=== PATIENT | male | born 1975 | race Caucasian/White ===

== ENCOUNTER → 2020-05-08 | Outpatient (CLI) | payer BC ==
--- NOTE | 2020-05-08 10:08 | Diagnostic Imaging Report ---
INDICATION: Right upper quadrant abdominal pain. TECHNIQUE: Gallbladder sonography was performed in the routine fashion. FINDINGS: The liver shows normal echogenicity with no focal lesions. The gallbladder is unremarkable with no stones or wall thickening. The common duct measures 3 mm. The portal vein is patent with hepatopetal flow. The aorta and IVC are not well visualized due to overlying gas. The right kidney measures 10.1 cm in length. There is no ascites. IMPRESSION: Unremarkable right upper quadrant ultrasound. Dictated by: Dictated on workstation # [id number]
== END ==
LOC: RAD 08:58
PROVIDERS: ATTEND Family Medicine
DX: R10.11 Right upper quadrant pain (principal)
CPT/HCPCS: 76705

== ENCOUNTER 2020-10-26 14:25 | Emergency (ER) | payer BC ==
[~2020-10-26] VITALS: Ht 173 cm; Wt 82.0 kg
--- NOTE | 2020-10-26 14:36 | ED GU-Male ---
General Stated Complaint: RLQ PAIN,DIFFICULTY URINATING History of Present Illness Date Seen by Provider: Oct 26, 2020 Time Seen by Provider: 14:35 Initial Comments To ER with some dysuria that began this morning that progressed to right lower quadrant abdominal pain. He had a similar episode a few months ago and had his gallbladder looked at but it was unremarkable. Timing/Duration: constant Severity/Quality: moderate Location: RLQ Radiation: suprapubic Activities at Onset: none Prior Genitourinary Problems: none Associated Symptoms: dysuria Allergies and Home Medications Allergies Coded Allergies: No Known Drug Allergies (Unverified , 10/26/20) Home Medications Hydrocodone/Acetaminophen 1 Each Tablet, 1 EACH PO Q4H PRN for PAIN-MODERATE (5- 7) Prescribed by: GRANT MARAVILLA on 10/26/20 1519 Ondansetron 8 Mg Tab.rapdis, 8 MG PO Q6H PRN for NAUSEA/VOMITING Prescribed by: GRANT MARAVILLA on 10/26/20 1519 Sulfamethoxazole/Trimethoprim 1 Each Tablet, 1 EACH PO BID Prescribed by: GRANT MARAVILLA on 10/26/20 1519 Patient Home Medication List Home Medication List Reviewed: Yes Review of Systems Review of Systems Constitutional: see HPI EENTM: see HPI Respiratory: no symptoms reported Cardiovascular: no symptoms reported Gastrointestinal: abdominal pain Genitourinary: see HPI, burning, dysuria Musculoskeletal: no symptoms reported Psychiatric/Neurological: No Symptoms Reported Endocrine: No Symptoms Reported Hematologic/Lymphatic: No Symptoms Reported Past Vinsaot-Wzwriq-Fvclmo Hx Patient Social History Recent Foreign Travel: No Contact w/Someone Who Travel: No Physical Exam Vital Signs Vital Signs - First Documented 10/26/20 15:17 Temp 35.3 Pulse 72 Resp 20 B/P (MAP) 178/109 (132) Pulse Ox 97 O2 Delivery Room Air Capillary Refill : Height, Weight, BMI Height: '" Weight: lbs. oz. kg; BMI Method: General Appearance: WD/WN, no apparent distress Respiratory: no respiratory distress, no accessory muscle use Gastrointestinal: normal bowel sounds, non tender, soft Extremities: normal range of motion, non-tender Neurologic/Psychiatric: alert, normal mood/affect, oriented x 3 Skin: normal color, warm/dry Progress/Results/Core Measures Suspected Sepsis SIRS Temperature: Pulse: Respiratory Rate: Laboratory Tests 10/26/20 14:42: White Blood Count 5.5 Blood Pressure / Mean: Laboratory Tests 10/26/20 14:42: Creatinine 1.06, Platelet Count 221, Total Bilirubin 0.4 Results/Orders Lab Results Laboratory Tests Test 10/26/20 14:42 10/26/20 14:50 Range/Units White Blood Count 5.5 4.3-11.0 10^3/uL Red Blood Count 4.95 4.30-5.52 10^6/uL Hemoglobin 14.4 13.3-17.7 g/dL Hematocrit 44 40-54 % Mean Corpuscular Volume 88 80-99 fL Mean Corpuscular Hemoglobin 29 25-34 pg Mean Corpuscular Hemoglobin Concent 33 32-36 g/dL Red Cell Distribution Width 12.5 10.0-14.5 % Platelet Count 221 130-400 10^3/uL Mean Platelet Volume 10.6 9.0-12.2 fL Immature Granulocyte % (Auto) 0 % Neutrophils (%) (Auto) 44 42-75 % Lymphocytes (%) (Auto) 47 H 12-44 % Monocytes (%) (Auto) 7 0-12 % Eosinophils (%) (Auto) 1 0-10 % Basophils (%) (Auto) 0 0-10 % Neutrophils # (Auto) 2.4 1.8-7.8 10^3/uL Lymphocytes # (Auto) 2.6 1.0-4.0 10^3/uL Monocytes # (Auto) 0.4 0.0-1.0 10^3/uL Eosinophils # (Auto) 0.1 0.0-0.3 10^3/uL Basophils # (Auto) 0.0 0.0-0.1 10^3/uL Immature Granulocyte # (Auto) 0.0 0.0-0.1 10^3/uL Sodium Level 144 135-145 MMOL/L Potassium Level 3.7 3.6-5.0 MMOL/L Chloride Level 105 98-107 MMOL/L Carbon Dioxide Level 27 21-32 MMOL/L Anion Gap 12 5-14 MMOL/L Blood Urea Nitrogen 16 7-18 MG/DL Creatinine 1.06 0.60-1.30 MG/DL Estimat Glomerular Filtration Rate > 60 BUN/Creatinine Ratio 15 Glucose Level 73 70-105 MG/DL Calcium Level 8.9 8.5-10.1 MG/DL Corrected Calcium 8.5-10.1 MG/DL Total Bilirubin 0.4 0.1-1.0 MG/DL Aspartate Amino Transf (AST/SGOT) 31 5-34 U/L Alanine Aminotransferase (ALT/SGPT) 42 0-55 U/L Alkaline Phosphatase 98 40-136 U/L Total Protein 8.4 H 6.4-8.2 GM/DL Albumin 4.6 H 3.2-4.5 GM/DL Urine Color YELLOW Urine Clarity CLEAR Urine pH 6.0 5-9 Urine Specific [place] >=1.030 1.016-1.022 Urine Protein TRACE H NEGATIVE Urine Glucose (UA) NEGATIVE NEGATIVE Urine Ketones NEGATIVE NEGATIVE Urine Nitrite NEGATIVE NEGATIVE Urine Bilirubin NEGATIVE NEGATIVE Urine Urobilinogen 1.0 < = 1.0 MG/DL Urine Leukocyte Esterase NEGATIVE NEGATIVE Urine RBC (Auto) 3+ H NEGATIVE Urine RBC 10-25 H /HPF Urine WBC RARE /HPF Urine Squamous Epithelial Cells RARE /HPF Urine Crystals NONE /LPF Urine Bacteria TRACE /HPF Urine Casts NONE /LPF Urine Mucus SMALL H /LPF Urine Culture Indicated NO My Orders Orders - GRANT MARAVILLA APRN Cbc With Automated Diff (10/26/20 14:33) Comprehensive Metabolic Panel (10/26/20 14:33) Ed Iv/Invasive Line Start (10/26/20 14:33) Ct Abd/Pelvis Wo(Kidney Stone) (10/26/20 14:33) Ns Iv 1000 Ml (Sodium Chloride 0.9%) (10/26/20 14:45) Ondansetron Injection (Zofran Injectio (10/26/20 14:45) Ketorolac Injection (Toradol Injection) (10/26/20 14:45) Ua Culture If Indicated (10/26/20 14:33) Fentanyl Injection (Sublimaze Injection (10/26/20 15:04) Medications Given in ED Current Medications Medications Dose Ordered Sig/Radha Route Start Time Stop Time Status Last Admin Dose Admin Ketorolac Tromethamine 15 mg ONCE ONCE IVP 10/26/20 14:45 10/26/20 14:46 DC 10/26/20 14:56 15 MG Ondansetron HCl 4 mg ONCE ONCE IVP 10/26/20 14:45 10/26/20 14:46 DC 10/26/20 14:56 4 MG Vital Signs/I&O 10/26/20 15:17 Temp 35.3 Pulse 72 Resp 20 B/P (MAP) 178/109 (132) Pulse Ox 97 O2 Delivery Room Air Capillary Refill : Departure Impression Primary Impression: Right ureteral stone Additional Impression: Abdominopelvic lymphadenopathy Disposition: HOME, SELF-CARE Condition: Stable Departure-Patient Inst. Decision time for Depature: 15:14 Referrals: BRENT JEFFERSON MD (PCP/Family) Primary Care Physician Patient Instructions: Kidney Stones in Adults Add. Discharge Instructions: 1. Return to ER for any fevers chills or intolerable pain. Take the pain medication and nausea medication as directed. Follow-up with Dr. Jefferson on Thursday. Emergency department focuses on treating and ruling out life- threatening diseases. Whenever possible, a diagnosis is given. However, most patients are given an impression based on their history, physical exam, and w orkup during your brief time in the ER. Information about probable diagnosis and other educational material has been provided. Please take the time to read and understand this information. It is very important that you follow up with a physician as discussed during the visit today. Failure to adhere to your follow-up instructions may lead to severe disability, injury, or so please make sure to keep your appointments or obtain one as requested. Scripts Sulfamethoxazole/Trimethoprim (Bactrim Ds Tablet) 1 Each Tablet 1 EACH PO BID, #14 TAB Prov: GRANT MARAVILLA APRN 10/26/20 Ondansetron (Ondansetron Odt) 8 Mg Tab.rapdis 8 MG PO Q6H PRN for NAUSEA/VOMITING, #10 TAB Prov: GRANT MARAVILLA APRN 10/26/20 Hydrocodone/Acetaminophen (Hydrocodone-Acetamin 5-325 mg) 1 Each Tablet 1 EACH PO Q4H PRN for PAIN-MODERATE (5-7), #14 TAB Prov: GRANT MARAVILLA APRN 10/26/20 Copy Copies To 1: BRENT JEFFERSON MD, PETER J APRN Oct 26, 2020 14:36
[2020-10-26] MEDS ORDERED: KETOROLAC 30 MG/ML VIAL IVP ONE (14:45)
[2020-10-26] MEDS ORDERED: NS IV 1000 ML 1,000 ML IV SCH (14:45)
[2020-10-26] MEDS ORDERED: ONDANSETRON 4 MG/2 ML (SDV) Z0FRAN IVP ONE (14:45)
[2020-10-26 14:49] LABS: BASOPHILS % (AUTO) 0 % (0-10); EOSINOPHILS # (AUTO) 0.1 10^3/uL (0.0-0.3); EOSINOPHILS % (AUTO) 1 % (0-10); HEMATOCRIT 44 % (40-54); HEMOGLOBIN 14.4 g/dL (13.3-17.7); LYMPHOCYTES # (AUTO) 2.6 10^3/uL (1.0-4.0); LYMPHOCYTES % (AUTO) 47 % (12-44); MEAN CORPUSCULAR HEMOGLOBIN 29 pg (25-34); MEAN CORPUSCULAR HGB CONC 33 g/dL (32-36); MEAN CORPUSCULAR VOLUME 88 fL (80-99); MEAN PLATELET VOLUME 10.6 fL (9.0-12.2); MONOCYTES # (AUTO) 0.4 10^3/uL (0.0-1.0); MONOCYTES % (AUTO) 7 % (0-12); NEUTROPHILS # (AUTO) 2.4 10^3/uL (1.8-7.8); NEUTROPHILS % (AUTO) 44 % (42-75); PLATELET COUNT 221 10^3/uL (130-400); WHITE BLOOD COUNT 5.5 10^3/uL (4.3-11.0)
[2020-10-26 14:59] LABS: ALBUMIN 4.6 GM/DL (3.2-4.5); CHLORIDE 105 MMOL/L (98-107); POTASSIUM 3.7 MMOL/L (3.6-5.0); SODIUM 144 MMOL/L (135-145)
[2020-10-26 15:00] LABS: BILIRUBIN,URINE NEGATIVE (NEGATIVE); CLARITY,URINE CLEAR; COLOR,URINE YELLOW; GLUCOSE, URINE (UA) NEGATIVE (NEGATIVE); KETONES,URINE NEGATIVE (NEGATIVE); LEUKOCYTE ESTERASE ,URINE NEGATIVE (NEGATIVE); NITRITE,URINE NEGATIVE (NEGATIVE); PROTEIN,URINE TRACE (NEGATIVE)
[2020-10-26 15:00] LABS: CALCIUM 8.9 MG/DL (8.5-10.1)
[2020-10-26 15:01] LABS: GLUCOSE 73 MG/DL (70-105)
[2020-10-26 15:02] LABS: TOTAL PROTEIN 8.4 GM/DL (6.4-8.2)
[2020-10-26 15:03] LABS: BILIRUBIN,TOTAL 0.4 MG/DL (0.1-1.0); CARBON DIOXIDE 27 MMOL/L (21-32)
[2020-10-26] MEDS ORDERED: fentaNYL INJECTION 100 MCG/2 ML AMP ONE ×2 (15:04→15:42)
[2020-10-26 15:05] LABS: ALKALINE PHOSPHATASE 98 U/L (40-136); CREATININE SERUM 1.06 MG/DL (0.60-1.30); GFR ESTIMATED > 60
[2020-10-26 15:06] LABS: BUN/CREATININE RATIO 15
[2020-10-26 15:08] LABS: ALANINE AMINOTRANSFERASE 42 U/L (0-55)
[2020-10-26 15:10] LABS: BACTERIA,URINE TRACE /HPF; SQUAMOUS EPITHELIAL CELL,UR RARE /HPF; WBC,URINE RARE /HPF
[2020-10-26] MEDS ORDERED: ACHD5005 PO (15:19)
[2020-10-26] MEDS ORDERED: SULF1TAB35 PO (15:19)
[2020-10-26] MEDS ORDERED: ONDA8TAB13 PO (15:19)
--- NOTE | 2020-10-26 15:27 | Diagnostic Imaging Report ---
PROCEDURE: CT urinary tract, rule out kidney stone. TECHNIQUE: Multiple contiguous axial images were obtained through the abdomen and pelvis without the use of intravenous contrast. Auto Exposure Controls were utilized during the CT exam to meet ALARA standards for radiation dose reduction. INDICATION: Right-sided abdominal pain CORRELATION STUDY: None. FINDINGS: LOWER THORAX: There are multifocal patchy nodular densities involving the bilateral lower lobes right greater than left. Largest on the right measuring up to 18 mm. On the left up to 15 mm. Heart size within normal limits. Small hiatal hernia. LIVER: Unremarkable. GALLBLADDER: Contracted but otherwise unremarkable. No significant bile ductal dilatation. SPLEEN: Unremarkable. Small splenule in the hilum inferiorly. PANCREAS: Unremarkable. ADRENAL GLANDS: Unremarkable. KIDNEYS: Approximately 8 mm stone at the right UVJ results in mild to moderate right-sided hydroureteronephrosis. Left kidney and collecting system unremarkable. ABDOMINAL AORTA: Unremarkable, nonaneurysmal. GASTROINTESTINAL TRACT: No obstruction or inflammation. Normal appendix. Slight haziness about the central mesentery with minimal mesenteric lymph nodes. URINARY BLADDER: Relatively decompressed not well evaluated. REPRODUCTIVE: Unremarkable. OSSEOUS STRUCTURES: No acute abnormality. OTHER: None. IMPRESSION: 1. 8 mm stone at the right UVJ results in mild right-sided obstructive uropathy. 2. Patchy bibasilar pulmonary infiltrates/nodules. While it could be inflammatory infectious or even embolic in etiology, possibility of underlying neoplasm is also in the differential. Correlation with patient's symptoms as well as consideration for followup CT imaging of the chest is recommended. Dictated by: Dictated on workstation # [id number]
[2020-10-26] MEDS ORDERED: HYDROcodone/APAP 5 MG/325 MG (LORTAB) TAB PO ONE (15:45)
[2020-10-26] MEDS ORDERED: fentaNYL INJECTION 100 MCG/2 ML AMP IVP ONE (15:45)
[2020-10-26 16:15] VITALS: BP 178/109
== END 2020-10-26 16:15 ==
LOC: EDUNIT# 14:25 → ER 14:27
DX: N13.2 Hydronephrosis with renal and ureteral calculous obstruction (principal); R59.1 Generalized enlarged lymph nodes
CPT/HCPCS: 36415; 74176; 80053; 81000; 85025

== ENCOUNTER → 2020-10-30 | Outpatient (CLI) | payer BC ==
[~2020-10-30] MED LIST: ACHD5005 PO; FINA1TAB16 PO; LISI10TA2 PO; ONDA8TAB13 PO; ROSU20TA32 PO; SULF1TAB35 PO; TMSL.4C PO
--- NOTE | 2020-10-30 14:44 | Diagnostic Imaging Report ---
INDICATION: Follow-up calculus. COMPARISON: CT dated 10/26/2020. FINDINGS: Two frontal supine radiographic views of the abdomen were obtained. Small bowel loops are nondistended. There is no large collection of free intraperitoneal air. 7 mm calculus projects over the right pelvis and is felt to correspond to distal ureteral calculus seen on previous CT. Distal ureteral versus intraluminal position within the bladder is indeterminate. No unexpected radiopaque foreign bodies are seen. Osseous structures show no acute abnormalities IMPRESSION: 1. Nonobstructed small bowel gas pattern. 2. Persistent collecting system calculus projecting over the right pelvis as above. Dictated by: Dictated on workstation # [id number]
== END ==
LOC: RAD 14:17
PROVIDERS: ATTEND Urology
DX: N20.1 Calculus of ureter (principal)
CPT/HCPCS: 74018

== ENCOUNTER 2020-10-31 07:08 | Day surgery (SDC) | payer BC ==
[~2020-10-31] VITALS: Ht 172.7 cm; Wt 81.8 kg
[2020-10-31] VITALS (8 sets, daily range): BP systolic 113–138; BP diastolic 76–102
[~2020-10-31 07:08] MED LIST changes: -FINA1TAB16 PO; -LISI10TA2 PO; -ROSU20TA32 PO; -TMSL.4C PO
--- NOTE | 2020-10-31 07:31 | Progress Note-Pre Operative ---
Pre-Operative Progress Note H&P Reviewed The H&P was reviewed, patient examined and no changes noted. Date Seen by Provider: Oct 31, 2020 Time Seen by Provider: 07:30 Date H&P Reviewed: Oct 31, 2020 Time H&P Reviewed: 07:30 Pre-Operative Diagnosis: RT DISTAL URETERAL STONE DALLIN OKEEFE MD Oct 31, 2020 07:31
--- NOTE | 2020-10-31 07:31 | Progress Note-Post Operative ---
Post-Operative Progess Note Surgeon (s)/Boat Puller (s) Surgeon DALLIN OKEEFE MD Boat Puller: NONE Pre-Operative Diagnosis RT DISTAL URETERAL STONE Post-Operative Diagnosis SAME Procedure & Operative Findings Date of Procedure 10/31/20 Procedure Performed/Findings RT URETEROSCOPY WITH STONE LITHOTRIPSY Anesthesia Type GENERAL Estimated Blood Loss Estimated blood loss (mL): NONE Specimens/Packing Specimens Removed NONE Packing: NONE DALLIN OKEEFE MD Oct 31, 2020 07:31
--- NOTE | 2020-10-31 07:33 | Discharge Inst-Urology ---
Discharge Inst-Urology Reconcile Patient Problems Problems Reviewed?: Yes Final Diagnosis RT DISTAL URETERAL STONE Patient Instructions/Follow Up Plan/Assessment/Instructions Please make appointment to been seen in office in 2 weeks. Increase oral fluids for 48 hours and then as needed. Diet and Activity as tolerated. If questions or concerns contact your physician Or seek help at emergency department. DALLIN OKEEFE MD Oct 31, 2020 07:33
[2020-10-31] MEDS: LACTATED RINGERS 1,000 ML IV PRN ×2 (07:43→09:50)
[2020-10-31] MEDS ORDERED: cefTRIAXone FOR IV USE 1,000 MG in WATER (STERILE) FOR INJECTION 10 ML IV ONE (07:45)
[2020-10-31] MEDS ORDERED: CATHETER FLUSH 10 ML SYR IV PRN (08:00)
--- NOTE | 2020-10-31 08:10 | Diagnostic Imaging Report ---
Indication: Preop for right-sided stone. Time of exam 800 AM Correlation is made with prior abdominal radiograph from one day earlier. 7 mm calculus projects in right para midline pelvis, similar to prior exam and likely in the distal right ureter. No other urinary tract calculi are detected. Bowel gas pattern is unremarkable. IMPRESSION: Right para midline pelvic calcification, likely representing a recently seen distal right ureteral calculus. This is similar position to examination one day earlier. Dictated by: Dictated on workstation # [id number]
[2020-10-31] MEDS ORDERED: LISI10TA2 PO (08:26)
[2020-10-31] MEDS ORDERED: ROSU20TA32 PO (08:26)
[2020-10-31] MEDS ORDERED: FINA1TAB16 PO (08:26)
[2020-10-31] MEDS ORDERED: fentaNYL INJECTION 100 MCG/2 ML AMP ONE (08:48)
[2020-10-31] MEDS ORDERED: proPOfol 200 MG/20 ML (DIPRIVAN) VIAL IV ONE (08:48)
[2020-10-31] MEDS ORDERED: MIDAZOLAM 2 MG/2 ML (VERSED) VIAL ONE (08:48)
[2020-10-31] MEDS ORDERED: LIDOCAINE PF 2% 5 ML (XYLOCAINE) VIAL ONE (08:48)
[2020-10-31] MEDS ORDERED: SEVOFLURANE (ULTANE) 15 ML INHAL SOLN ONE (08:49)
[2020-10-31] MEDS ORDERED: ONDANSETRON 4 MG/2 ML (SDV) Z0FRAN ONE (08:49)
[2020-10-31] MEDS ORDERED: ROCURONIUM 10 MG/ML 5 ML SYRINGE IV ONE (09:26)
[2020-10-31] MEDS ORDERED: GLYCOPYRROLATE 0.2 MG/ML (ROBINUL) 2 ML VIAL ONE ×2 (09:26→09:30)
[2020-10-31] MEDS ORDERED: KETOROLAC 30 MG/ML VIAL ONE (09:27)
[2020-10-31] MEDS ORDERED: FUROSEMIDE 40 MG/4 ML INJ (LASIX) ONE (09:27)
[2020-10-31] MEDS ORDERED: NEOSTIGMINE 3 MG/3 ML VIAL ONE (09:30)
[2020-10-31] MEDS ORDERED: ONDANSETRON 4 MG/2 ML (SDV) Z0FRAN IVP PRN (09:45)
[2020-10-31] MEDS ORDERED: HYDROmorphone 2 MG/ML VIAL (DILAUDID) IV ONE (09:45)
[2020-10-31] MEDS ORDERED: TMSL.4C PO (11:07)
--- NOTE | 2020-10-31 14:38 | Anesthesia-General Post-Op ---
General Patient Condition Mental Status/LOC: Same as Preop Cardiovascular: Satisfactory Nausea/Vomiting: Absent Respiratory: Satisfactory Pain: Controlled Complications: Absent Post Op Complications Complications None Follow Up Care/Instructions Patient Instructions None needed. Anesthesia/Patient Condition Patient Condition Patient is doing well, no complaints, stable vital signs, no apparent adverse anesthesia problems. No complications reported per nursing. D/C home per [facility] Criteria: Yes DANIEL MORENO CRNA Oct 31, 2020 14:38
--- NOTE | 2020-10-31 18:39 | OPERATIVE REPORT ---
DATE OF SERVICE: 10/31/2020 PREOPERATIVE DIAGNOSIS: Right distal ureteral stone. POSTOPERATIVE DIAGNOSIS: Right distal ureteral stone. OPERATION PERFORMED: Right ureteroscopy with stone lithotripsy. SURGEON: Kiran Okeefe MD ANESTHESIA: General. COMPLICATIONS: None. DESCRIPTION OF PROCEDURE: Under satisfactory general anesthesia, the patient in lithotomy position, genitalia were prepped and draped in the usual sterile fashion. Cystoscope was introduced under vision. The anterior urethra was normal. The prostate was nonobstructing. Bladder neck was open. The bladder was normal except the right ureteral orifice intramural portion edematous and swollen and I could see the tip of the stone protruding through the UVJ. I went ahead and removed the cystoscope inserted, a 6.9 Fijian semi-rigid ureteroscope, I could visualize the stone. I pushed it into the intramural portion and completely fragmented with lithoclast. I removed the ureteroscope and reinserted the cystoscope and emptied the bladder. The patient tolerated the procedure and anesthesia well and was sent to recovery room in stable condition. Job ID: [id number] DocumentID: [id number] Dictated Date: 10/31/2020 10:56:06 Mobile Therapist Date: 10/31/2020 18:38:21 Dictated By: KIRAN OKEEFE MD [facility]
--- NOTE | 2020-11-01 12:27 | NUR ---
Notified of positive COVID test.
== END 2020-10-31 11:44 | disposition home or self-care (01) ==
LOC: SDC 07:08
PROVIDERS: ATTEND Urology
DX: N20.1 Calculus of ureter (principal); U07.1 COVID-19; I10 Essential (primary) hypertension; E78.00 Pure hypercholesterolemia, unspecified; Z79.899 Other long term (current) drug therapy
CPT/HCPCS: 52353; 74018; 76000; 87081; U0002; 87635

== ENCOUNTER → 2021-07-16 | Outpatient (CLI) | payer BC, OTHER ==
[~2021-07-16] MED LIST changes: +FINA1TAB16 PO; +LISI10TA25 PO; +ROSU20TA32 PO; -SULF1TAB35 PO; +SULF1TAB38 PO; +TMSL.4C PO
--- NOTE | 2021-07-16 13:29 | Diagnostic Imaging Report ---
PROCEDURE: CT chest without contrast. TECHNIQUE: Multiple contiguous axial images were obtained through the chest without the use of intravenous contrast. Auto Exposure Controls were utilized during the CT exam to meet ALARA standards for radiation dose reduction. INDICATION: Follow-up of pulmonary nodules right lung base on CT abdomen of 10/26/2020. FINDINGS: The lungs are well-aerated and clear today. There are no infiltrates or nodules. No pleural effusion or pericardial effusion. No mediastinal or hilar adenopathy. The adrenal glands are not enlarged. No bony lesion. IMPRESSION: Normal CT chest without contrast. Dictated by: Dictated on workstation # [id number]
== END ==
LOC: RAD 12:45
PROVIDERS: ATTEND Family Medicine
DX: R91.8 Other nonspecific abnormal finding of lung field (principal)
CPT/HCPCS: 71250